=== PATIENT | male | born 1985 | race African-American/Black ===

== ENCOUNTER 2021-10-03 16:30 | Emergency (ER) | payer MEDICAID, SELFPAY ==
[2021-10-03 16:32] VITALS: PULSE 87; RESP 14; TEMP 36.4; O2SAT 97; BMI 32.0
[2021-10-03 18:41] VITALS: BP 201/140
[2021-10-03] MEDS: oxyCODONE 5 MG Tablet PO ×2 (19:34→21:39)
[2021-10-03] MEDS: Labetalol (Prefilled) 20 MG/4 ML 10 MG IV ×2 (19:34→20:50)
[2021-10-03 20:00] VITALS: BP 176/133
--- NOTE | 2021-10-03 21:04 | CM.ED ---
SW Note Referral Source: Case Find Referral Reason: No Primary Care Physician (PCP) SW reviewed chart and noted that patient has no PCP. SW provided patient with list of [facility] and [facility] Physician List for reference. SW also provided patient with handout ?Where to go When?. No other issues or concerns voiced at this time. SW remains available for any additional needs. Plan: Provided patient with PCP information Tricia ALLEN
--- NOTE | 2021-10-03 21:30 | EX.ED.DYSGE1 ---
HPI History of Present Illness Chief Complaint: Back Detail of Chief Complaint: Neck pain Informant: patient Onset/Context/Timing Current Severity: Moderate Maximum Severity: Severe Narrative Narrative: Patient presents for evaluation of neck pain. He has herniated disc in his low cervical spine. He is scheduled to see his spine surgeon in early November to schedule surgery. Patient states that his doctor referred him to pain management. He lives in [place] but was not able to be seen by any the pain management doctors there in a timely fashion. He had an appointment with pain management at [facility] in [place] today. He states he was given the wrong address and arrived 5 minutes late for his appointment and they would not see him. They advised him to come to the emergency room for pain control. I did review patient's records in clinic sink. He had an MRI 1 week ago. He was seen in the emergency room at [facility] early this morning. He was treated with a dose of steroids and oxycodone there but was not given any prescription. He was noted to be significantly hypertensive at that visit. Patient states that he believes his blood pressure is elevated today because of his pain. He did take his propranolol today. [facility] Medical History Chronic pain Hypertension Home Medications oxycodone-acetaminophen [Percocet] 1 tab PO Q6H PRN 3 Days #10 tab 10/03/21 [Rx Last Taken Unknown] Allergy/AdvReac Type Severity Reaction Status Date / Time acetaminophen [From Vicodin] Allergy Hives Verified 10/03/21 16:35 cyclobenzaprine Allergy Hives Verified 10/03/21 16:35 [From Flexeril] hydrocodone [From Vicodin] Allergy Hives Verified 10/03/21 16:35 sertraline Allergy Hives Verified 10/03/21 16:35 Social History Smoking Status: Current every day smoker tobacco type: cigarettes ROS ROS ED Constitutional Constitutional ED: Denies chills or fever(s) Eyes Eyes: Denies change in vision ENT ENT ED: Denies sore throat Cardiovascular Cardiovascular: Denies chest pain Respiratory/Chest Respiratory/Chest: Denies cough or dyspnea Gastrointestinal Gastrointestinal: Denies abdominal pain, nausea or vomiting Genitourinary Genitourinary ED: Denies dysuria Musculoskeletal Musculoskeletal: Reports arthralgias and neck pain; Denies back pain Integumentary Denies rash Neurologic Neurologic: Denies headache(s) Allergic/Immunologic Allergic/Immunologic ED: Denies urticaria EXAM Physical Exam Const Vital Signs: 10/03/21 16:32 10/03/21 18:41 10/03/21 20:00 Temperature 97.5 F L Temperature Source Temporal Pulse Rate 87 Respiratory Rate 14 Blood Pressure 201/140 H 176/133 H Blood Pressure Mean 160 147 Pulse Ox 97 Oxygen Delivery Method Room Air 10/03/21 21:41 Temperature Temperature Source Pulse Rate Respiratory Rate Blood Pressure 180/135 H Blood Pressure Mean Pulse Ox Oxygen Delivery Method Positive well nourished and well developed General Appearance ED: well developed HEENT Reports moist mucous membranes Eyes PERRL and EOMs intact bilaterally Neck Neck Narrative: Diffuse tenderness throughout the C-spine and paraspinal muscles. Chest Wall inspection of chest normal and palpation of chest normal Resp normal respiratory effort and clear to auscultation bilaterally Cardio regular rate and regular rhythm GI non-tender Palpation: soft Extremity normal to inspection Neuro oriented x3 Neuro Narrative: Good strength and sensation noted in the upper and lower extremities. Sensorium / Orientation: alert Skin no rashes or lesions noted MDM MDM Treatment and Re-Evaluation Narrative: I did review the patient's prior evaluations through [facility]. He has never been to this facility. He did answer my questions truthfully. He was given oxycodone as well as labetalol here for blood pressure control. Blood pressure went from just over 200 systolic down into the 170s. He is due for his evening blood pressure medication and will take that when he gets home tonight. He will be given a prescription for 10 tabs of Percocet. He was advised that the emergency room cannot write for more than 3 days of pain medication and should not be writing for chronic pain conditions. He is referred to 2 different pain management facilities in [place] to see if he can be seen in a timely manner. Discharge Plan Triage Chief Complaint: Back ED Provider: Kristel Vargas Dx/Rx/DC Orders Clinical Impression: Hypertension, Neck pain Instructions: ED Hypertension, Established, ED Neck Pain Prescriptions: New oxycodone-acetaminophen [Percocet] 5-325 mg tablet 1 tab PO Q6H PRN (Reason: pain) 3 Days Qty: 10 RF: 0 Primary Care Provider: Care Physician,No Primary Referrals: Lavonne Nova MD [STAFF PHYSICIAN] - As soon as possible Devaughn Bryant MD [STAFF PHYSICIAN] - As soon as possible Care Physician,No Primary [Primary Care Provider] - Disposition Disposition: Home, Self Care Discharge Date/Time: 10/03/21 21:48
[2021-10-03 21:41] VITALS: BP 180/135
== END 2021-10-03 21:48 | disposition home or self-care (01) ==
PROVIDERS: Emergency Provider Emergency Medicine; Visit Provider Emergency Medicine
DX: I10 Essential (primary) hypertension (principal); G89.29 Other chronic pain; M50.20 Other cervical disc displacement, unspecified cervical region; F17.210 Nicotine dependence, cigarettes, uncomplicated; M54.2 Cervicalgia
CPT/HCPCS: 96374; 96376; 99284; A4216